=== PATIENT | female | born 1970 | race Caucasian/White ===

== ENCOUNTER 2016-08-24 14:21 | Emergency (ER) | payer OTHER ==
[2016-08-24 14:31] VITALS: RESP 18; TEMP 96
[2016-08-24] MEDS ORDERED: Lidocaine Inj 1% 20 ML ONE (15:00)
--- NOTE | 2016-08-24 15:00 | PDOC ---
Hand / Wrist Injury HPI - General Chief Complaint: Upper Extremity Problem/Injury Stated Complaint: FINGER LACERATION Date Seen by Provider: 08/24/16 Time Seen by Provider: 14:55 Source: POSITIVE: Patient Exam Limitations: POSITIVE: No limitations Nurse's Notes Reviewed & Considered: Yes - History of Present Illness Initial Comments: Patient was at work at the [employer] and called her finger in the conveyor. This resulted in laceration of her left third finger distal portion. She has good sensations present and good range of motion. Have you received a tetanus shot in the past 10 years?: Yes Body Location Affected: REPORTS: Other (Left third finger) Timing: REPORTS: Abrupt Duration: 1 hour Severity: Moderate Location at Time of Onset: REPORTS: Work ([employer]) Context: REPORTS: Crush Location of Injury: REPORTS: Left, 3rd Finger Quality: REPORTS: "Pain", Stabbing, Throbbing Modifying Factors: REPORTS: Movement Any Prior Injuries Related to Current Complaint?: No - Patient Home Medications Home Medications: Home Medications Acetaminophen [Tylenol] 650 mg PO TID PRN 01/28/16 Aspirin/Acetaminophen/Caffeine [Excedrin Caplet] 2 each PO PRN PRN 01/28/16 Ibuprofen 600 mg PO TID PRN 01/28/16 Carbamazepine [Tegretol] 200 mg PO QD #60 tab 03/22/16 - Patient Allergies Allergies/Adverse Reactions: Allergies Allergy/AdvReac Type Severity Reaction Status Date / Time cephalexin monohydrate Allergy RASH Verified 08/24/16 14:23 [From Keflex] antidepressants Allergy NOT Uncoded 08/24/16 14:23 APPLICABLE control Allergy NOT Uncoded 08/24/16 14:23 APPLICABLE Past Medical History - heen HEENT History: Denies History Cardiovascular History: Denies History Respiratory History: Denies History Gastrointestinal History: Denies History Genitourinary History: Denies History Endocrine History: Denies History Musculoskeletal History: Denies History Prosthesis or Implant: Yes (HARDWARE IN NECK, BACK, LEFT KNEE) Additional Musculoskeletal History: BACK FRACTURE x5 (SURGERY x3), NECK FRACTURE x1 (SURGERY), RIGHT ELBOW SURGERY, LEFT KNEE SURGERY Neurological History: Denies History Blood Disorders: Denies History Psychiatric History: Bi Polar Disorder, Anxiety Disorders History of Sexually Transmitted Diseases: No Cancer History: Denies History In Past Year Been Physically Harmed or Verbally Threatened: No History of MDRO: No History of Other Communicable Diseases: No Tobacco Use: Current Some Day Smoker Alcohol Use: None Substance Use Type: None Previous Surgical History: Yes Type / Date of Surgery: back x3, knee, hyster, lap expl., ovarian cysts, arm Anesthesia Reactions: No Malignant Hyperthermia: No Significant Family History: No pertinent family hx ROS - Limitations ROS Limitations: No Limitations Constitution: REPORTS: Denies Symptoms Cardiovascular: REPORTS: Denies Cardiac Symptoms Respiratory: REPORTS: Denies Resp Symptoms Neurological: REPORTS: Denies Neuro Symptoms Gastrointestinal: REPORTS: Denies GI Symptoms Endocrine: REPORTS: Denies Symptoms Musculoskeletal: REPORTS: Denies MS Symptoms Genitourinary: REPORTS: Denies Symptoms Eyes: REPORTS: Denies Symptoms ENT: REPORTS: Denies Symptoms Skin: REPORTS: Other (Laceration tip of left third finger.) Lympathic: REPORTS: Denies Lympathic Symptoms Immunologic: POSITIVE: Denies Symptoms Psychiatric: POSITIVE: Denies Psych Symptoms Hand / Wrist Injury Exam - General Appearance General Appearance: POSITIVE: Alert, Cooperative, No Acute Distress - Extremities Upper Extremity: POSITIVE: No Evidence of FB, Normal ROM, Soft Tissue Tenderness , Other (1 cm laceration tip of left third finger.) Neurovascular / Tendon: POSITIVE: Sensation Normal, Motor Normal, No Vascular Compromise, Tendon Function Normal Skin: POSITIVE: Warm, Dry - HEENT HEENT: POSITIVE: Head Inspection Nml, Eyes Inspection Nml, Ears Inspection Nml, Nose Inspection Nml, PERRL, EOMI Procedure - Laceration/Wound Repair Time of Suture Placement:: 15:33 Wound Length (cm): 1 Wound's Depth, Shape: Flap Distal CMS: Yes Skin Prep: Betadine Prep Local Anesthesia Used - Indicate Amt Used in Comment: Lidocaine 1%: Yes Irrigated w/ Saline (mL): 10 Wound Explored: Clean Wound Debrided: Minimal Wound Repaired With: Sutures single layer Suture Size/Type: 4:0, Ethilon Number of Sutures: 3 Drain Placement: No Sterile Dressing Applied?: Yes Splint Applied?: No Sling Applied?: No Hand / Wrist Injury Progress - Patient's Progress Pain Medication Addressed: POSITIVE: Other (Please Comment) (local anesthesia) School/Work Release Addressed: POSITIVE: Yes Status: POSITIVE: Improved MDM / ED Course: Patient had the skin at the base of her third finger left hand cleaned with alcohol swab, 1% plain lidocaine was infiltrated in a ring block which resulted in excellent anesthesia. Her hand was soaked in a Betadine T for approximately 20 minutes, irrigated with normal saline 10 mL, then suture repaired using 4-0 Ethilon in interrupted fashion. A total of 3 interrupted sutures were placed with good skin edge approximation and good hemostasis. Patient tolerated this well. She is discharged home with instructions and wound care instructions to return here to the emergency department in 7 days for suture removal. - Consult Counseled: POSITIVE: Patient, RE: DX, RE: Need for F/U Patient Care Time - Estimated PCT Patient Care Time (In Minutes): 20 Vital Signs - Recent Vital Signs Vital Signs: Vital Signs (Last 8 hours) Temp Pulse Resp BP Pulse Ox 08/24/16 14:22 96.0 F L 81 18 138/84 95 - VS Reviewed Vital Signs Reviewed: Yes Discharge Clinical Impression: Laceration of finger Discharge Disposition: Discharged to Home Condition: Good Patient Instructions Given at Discharge: Laceration (ED)
[2016-08-24] MEDS ORDERED: Lidocaine 1% 10 MG/ML - 20 ML VIAL SUBCUT ONE (15:06)
== END 2016-08-24 15:44 | disposition home or self-care (01) ==
LOC: ER 14:21
DX: S61.213A Laceration without foreign body of left middle finger without damage to nail, initial encounter (principal); W31.82XA Contact with other commercial machinery, initial encounter; Y99.0 Civilian activity done for income or pay
CPT/HCPCS: 12001; 99282; J2001

== ENCOUNTER 2016-09-14 08:16 | Emergency (ER) | payer SELFPAY ==
[2016-09-14 08:27] VITALS: RESP 18; TEMP 97.4
[2016-09-14 09:06] LABS: BASOPHILS # (AUTO) 0.01 10*3/UL; BASOPHILS % (AUTO) 0.2 % (0-1); EOSINOPHILS % (AUTO) 1.2 % (0-8); HEMATOCRIT 43.3 % (37.0-47.0); HEMOGLOBIN 15.1 g/dL (12.0-16.0); IMM GRAN % (AUTO) 0.2 % (0-5); IMM GRAN# (AUTO) 0.01 10*3/UL; LYMPHOCYTES # (AUTO) 1.89 10*3/uL; LYMPHOCYTES % (AUTO) 29.4 % (10-50); MEAN CORPUSCULAR HEMOGLOBIN 31.6 PG (27-31); MEAN CORPUSCULAR HGB CONC 34.9 g/dL (33-37); MEAN PLATELET VOLUME 10.7 FL (7.4-12.2); MONOCYTES # (AUTO) 0.48 10*3/UL (0.3-0.8); MONOCYTES % (AUTO) 7.5 % (5-15); NEUTROPHILS # (AUTO) 3.96 10*3/UL; NEUTROPHILS % (AUTO) 61.5 % (50-80); RED BLOOD COUNT 4.78 10^6/uL (4.20-5.40); WHITE BLOOD COUNT 6.43 10^3/uL (4.8-10.8)
--- NOTE | 2016-09-14 09:06 | PDOC ---
Chest Pain HPI - General Chief Complaint: General Medical Stated Complaint: rib pain Date Seen by Provider: 09/14/16 Time Seen by Provider: 08:25 Source: Patient Exam Limitations: POSITIVE: No limitations Treatment Prior to Arrival: REPORTS: None Nurse's Notes Reviewed & Considered: Yes - History of Present Illness Initial Comments: The patient is a 46-year-old female. She states that this past , 5 days ago, she developed a fairly abrupt onset of bilateral "rib pain"somewhat worse on the left than the right. She complains of pain over both thoraces which is somewhat pleuritic and she states she "feels like I have broken ribs". The pain has been persistent and is worsened by direct palpation. She smokes a fourth of a pack of cigarettes per day. No cough. No fevers. She has been taken Tylenol Advil and tramadol for this pain. She states her pain is exacerbated by deep inspiration. 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 DENIES: Nausea, Vomiting, Diaphoresis, Shortness of Breath, Palpitations, Productive Cough (blood), Productive Cough (sputum), Weakness, Dizziness Modifying Factors: improves with: Deep breathing, Pressing On Area Similar Symptoms Previously: No Recently seen/treated/hospitalized: No Any Prior Injuries Related to Current Complaint?: No - Patient Home Medications Home Medications: Home Medications Acetaminophen [Tylenol] 650 mg PO TID PRN 01/28/16 Aspirin/Acetaminophen/Caffeine [Excedrin Caplet] 2 each PO PRN PRN 01/28/16 Ibuprofen 600 mg PO TID PRN 01/28/16 Carbamazepine [Tegretol] 200 mg PO QD #60 tab 03/22/16 - Patient Allergies Allergies/Adverse Reactions: Allergies Allergy/AdvReac Type Severity Reaction Status Date / Time cephalexin monohydrate Allergy RASH Verified 08/24/16 14:23 [From Keflex] antidepressants Allergy NOT Uncoded 08/24/16 14:23 APPLICABLE control Allergy NOT Uncoded 08/24/16 14:23 APPLICABLE Past Medical History - heen HEENT History: Denies History Cardiovascular History: Denies History Respiratory History: Denies History Gastrointestinal History: Denies History Genitourinary History: Denies History Endocrine History: Denies History Musculoskeletal History: Denies History Prosthesis or Implant: Yes (HARDWARE IN NECK, BACK, LEFT KNEE) Additional Musculoskeletal History: BACK FRACTURE x5 (SURGERY x3), NECK FRACTURE x1 (SURGERY), RIGHT ELBOW SURGERY, LEFT KNEE SURGERY Neurological History: Denies History Blood Disorders: Denies History Psychiatric History: Bi Polar Disorder, Anxiety Disorders History of Sexually Transmitted Diseases: No Female Reproductive History: Denies History Obstetrical History: Denies History Cancer History: Denies History In Past Year Been Physically Harmed or Verbally Threatened: No History of MDRO: No History of Other Communicable Diseases: No Tobacco Use: Never Smoker Alcohol Use: None Substance Use Type: None Previous Surgical History: Yes Type / Date of Surgery: back x3, knee, hyster, lap expl., ovarian cysts, arm Anesthesia Reactions: No Malignant Hyperthermia: No Significant Family History: No pertinent family hx Past Medical History Reviewed: Reviewed - No Changes ROS - Limitations ROS Limitations: No Limitations Constitution: REPORTS: Denies Symptoms Cardiovascular: REPORTS: Chest Pain (Chest pain on palpation diffusely over thorax) Respiratory: REPORTS: Hurts To Breathe Neurological: REPORTS: Denies Neuro Symptoms Gastrointestinal: REPORTS: Denies GI Symptoms Endocrine: REPORTS: Denies Symptoms Musculoskeletal: REPORTS: Denies MS Symptoms Genitourinary: REPORTS: Denies Symptoms Eyes: REPORTS: Denies Symptoms ENT: REPORTS: Denies Symptoms Skin: REPORTS: Denies Skin Symptoms Lympathic: REPORTS: Denies Lympathic Symptoms Immunologic: POSITIVE: Denies Symptoms Psychiatric: POSITIVE: Denies Psych Symptoms Chest Pain PE - General Appearance General Appearance: REPORTS: Alert, Cooperative, No Evidence of Trauma, Moderate Distress - HEENT HEENT: POSITIVE: Head Inspection Nml, Eyes Inspection Nml, Ears Inspection Nml, Nose Inspection Nml, Oral/Dental Inspect. Nml, Pharynx Inspect. Nml, PERRL, EOMI - Neck Neck: REPORTS: Normal Inspection, No Carotid Bruit - Respiratory Respiratory: REPORTS: No Respiratory Distress, Breath Sounds Normal, See Diagram (Patient expresses pain on palpation anywhere over the thorax). DENIES : Chest Non-Tender - Cardiovascular Cardiovascular: REPORTS: Regular Rate and Rhythm, Heart Sounds Normal, Equal Pulses, Strong Pulses, No Murmur, No Gallop, No Friction Rub, No JVD Peripheral Pulses: Radial (R): 2+, Radial (L): 2+ - Abdomen Abdomen: Soft: (All Quadrants), Normal Bowel Sounds: (All Quadrants), Denies Tenderness: (All Quadrants), No Splenomegaly: (All Quadrants), No Hepatomegaly: (All Quadrants), No Guarding: (All Quadrants), No Rebound: (All Quadrants), No Palpable Pulse: (All Quadrants), No Palpabale Mass: (All Quadrants), No Distention: (All Quadrants), No Rigidity: (All Quadrants) - Skin Skin: REPORTS: Intact, Normal For Race, Warm, Dry, No Rash - Extremities Extremity: Non-Tender: (All Extremities), Normal ROM: (All Extremities), Normal Inspection: (All Extremities) - Neurological / Psychological Neurological: 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 Larsen at 9 AM. Lab Results Reviewed: Yes (CBC and d-dimer are pending at time of transfer) - Patient's Progress Pain Medication Addressed: POSITIVE: No School/Work Release Addressed: POSITIVE: Not Applicable Re-Examine Time: 09:00 Re-Examine Comment: Condition unchanged. Care of patient transferred to Dr. Larsen, who is the emergency physician coming on at 9 AM Status: POSITIVE: Unchanged Patient Care Time - Estimated PCT Patient Care Time (In Minutes): 30 Vital Signs - Recent Vital Signs Vital Signs: Vital Signs (Last 8 hours) Temp Pulse Resp BP Pulse Ox 09/14/16 08:16 97.4 F 90 18 140/72 97 Discharge Clinical Impression: Non-cardiac chest pain Condition: Good Care Transferred To: care transferred to Dr. Larsen, formerly [facility] ER physician at 9 AM. X-rays an
[2016-09-14 09:07] LABS: PLATELET MORPHOLOGY COMMENT NORMAL MORPHOLOGY (NORM)
[2016-09-14] MEDS ORDERED: KETOROLAC 60 MG/2 ML VIAL IM ONE (09:21)
--- NOTE | 2016-09-14 09:41 | DI ---
PA /LATERAL CHEST X-RAY, 09/14/2016 8:42 AM : Clinical History: Chest pain. Previous Exam: 01/15/2016. There is no acute soft tissue or bony abnormality. Heart size is normal. Lungs are clear. Mediastinal structures are normal. There are no pulmonary nodules. Reading: Normal chest x-ray. There has been no interval change.
--- NOTE | 2016-09-14 10:16 | PDOC ---
General Adult HPI - General Chief Complaint: General Medical Stated Complaint: rib pain Date Seen by Provider: 09/14/16 Time Seen by Provider: 10:13 - History of Present Illness Initial Comment: Documentation from previous provider reviewed and agree with the subjective portion Have you received a tetanus shot in the past 10 years?: Yes - Patient Home Medications Home Medications: Home Medications Acetaminophen [Tylenol] 650 mg PO TID PRN 01/28/16 Aspirin/Acetaminophen/Caffeine [Excedrin Caplet] 2 each PO PRN PRN 01/28/16 Ibuprofen 600 mg PO TID PRN 01/28/16 Carbamazepine [Tegretol] 200 mg PO QD #60 tab 03/22/16 - Patient Allergies Allergies/Adverse Reactions: Allergies Allergy/AdvReac Type Severity Reaction Status Date / Time cephalexin monohydrate Allergy RASH Verified 08/24/16 14:23 [From Keflex] antidepressants Allergy NOT Uncoded 08/24/16 14:23 APPLICABLE control Allergy NOT Uncoded 08/24/16 14:23 APPLICABLE Past Medical History - heen HEENT History: Denies History Cardiovascular History: Denies History Respiratory History: Denies History Gastrointestinal History: Denies History Genitourinary History: Denies History Endocrine History: Denies History Musculoskeletal History: Denies History Prosthesis or Implant: Yes (HARDWARE IN NECK, BACK, LEFT KNEE) Additional Musculoskeletal History: BACK FRACTURE x5 (SURGERY x3), NECK FRACTURE x1 (SURGERY), RIGHT ELBOW SURGERY, LEFT KNEE SURGERY Neurological History: Denies History Blood Disorders: Denies History Psychiatric History: Bi Polar Disorder, Anxiety Disorders History of Sexually Transmitted Diseases: No Female Reproductive History: Denies History Obstetrical History: Denies History Cancer History: Denies History In Past Year Been Physically Harmed or Verbally Threatened: No History of MDRO: No History of Other Communicable Diseases: No Tobacco Use: Never Smoker Alcohol Use: None Substance Use Type: None Previous Surgical History: Yes Type / Date of Surgery: back x3, knee, hyster, lap expl., ovarian cysts, arm Anesthesia Reactions: No Malignant Hyperthermia: No Significant Family History: No pertinent family hx Past Medical History Reviewed: Reviewed - No Changes ROS - Limitations ROS Limitations: No Limitations Constitution: REPORTS: Denies Symptoms Cardiovascular: REPORTS: Denies Cardiac Symptoms. DENIES: Heart Palpitations Respiratory: REPORTS: Denies Resp Symptoms Neurological: REPORTS: Denies Neuro Symptoms General Adult Exam - General Appearance General Appearance: POSITIVE: Alert, Cooperative, No Acute Distress - HEENT HEENT: POSITIVE: Head Inspection Nml, Eyes Inspection Nml General Adult Progress - Results Reviewed by me Xrays/CTs/US Reviewed by me: Yes Radiology Findings: Normal chest Lab Results Reviewed: Yes Lab Results:: Laboratory Results 09/14/16 Range/Units 09:00 WBC 6.43 (4.8-10.8) 10^3/uL RBC 4.78 (4.20-5.40) 10^6/uL Hgb 15.1 (12.0-16.0) g/dL Hct 43.3 (37.0-47.0) % MCV 90.6 (81-99) FL MCH 31.6 H (27-31) PG MCHC 34.9 (33-37) g/dL RDW Std Deviation 39.6 (39-50) fL RDW Coeff of Rahul 12.0 (11.5-14.5) % Plt Count 219 (140-350) 10*3/uL MPV 10.7 (7.4-12.2) FL Immature Gran % (Auto) 0.2 (0-5) % Neut % (Auto) 61.5 (50-80) % Lymph % (Auto) 29.4 (10-50) % Barren % (Auto) 7.5 (5-15) % Eos % (Auto) 1.2 (0-8) % Baso % (Auto) 0.2 (0-1) % Immature Gran # (Auto) 0.01 10*3/UL Neut # (Auto) 3.96 10*3/UL Lymph # (Auto) 1.89 10*3/uL Barren # (Auto) 0.48 (0.3-0.8) 10*3/UL Eos # (Auto) 0.08 10*3/UL Baso # (Auto) 0.01 10*3/UL WBC Morphology Comment Normal morphology (NORM) Plt Morphology Comment Normal morphology (NORM) RBC Morph Comment Normal morphology (NORM) D-Dimer 0.35 (0.00-0.59) mg/L - Patient's Progress MDM / ED Course: This patient's story is abnormal. She has chest wall tenderness throughout her entire chest with no evidence of inflammation via a elevated white blood cell count a negative d-dimer and normal chest x-ray. She does not have any signs or symptoms consistent with a coronary phenomenon given that it is all chest wall in nature and reproducible with touch throughout the majority of her chest wall. This does not extend down into her abdomen does not affected joints or other muscle groups I'm really not sure what to make of it. I've encouraged her to follow-up with her primary care doctor as soon as possible. Also encourage her to follow-up. If things worsen at all. I have told her that occasionally I've seen similar sorts of symptoms prior to his substantial viral syndrome. At any rate she definitely needs further monitoring and workup and needs to return here if she worsens at all. Patient Care Time - Estimated PCT Patient Care Time (In Minutes): 20 Vital Signs - Recent Vital Signs Vital Signs: Vital Signs (Last 8 hours) Temp Pulse Resp BP Pulse Ox 09/14/16 08:16 97.4 F 90 18 140/72 97 - VS Reviewed Vital Signs Reviewed: Yes Discharge Clinical Impression: Non-cardiac chest pain, Acute chest wall pain Discharge Disposition: Discharged to Home Condition: Good Patient Instructions Given at Discharge: Chest Wall Pain (ED) Additional Instructions: Return here immediately with any worsening of symptoms change in your chest pain shortness of breath diaphoresis or other concerning problems Continue to use ibuprofen and Tylenol with plenty of food and water. Getting your primary care provider as soon as possible for further workup Follow Up With: DEBBY SEVILLA [Primary Care Provider] -
== END 2016-09-14 09:59 | disposition home or self-care (01) ==
LOC: ER 08:16
DX: R07.89 Other chest pain (principal)
CPT/HCPCS: 36415; 71020; 85025; 85379; 96372; 99284 ×2; J1885

== ENCOUNTER 2016-10-13 13:31 | Emergency (ER) | payer SELFPAY ==
[2016-10-13] MEDS ORDERED: KETOROLAC 30 MG/1 ML VIAL IVP ONE (13:44)
[2016-10-13] MEDS: NORMAL SALINE 10 ML SYRINGE FLUSH IVP PRN ×2 (13:45→15:55)
[2016-10-13 13:49] VITALS: RESP 16; TEMP 97.7
--- NOTE | 2016-10-13 13:51 | PDOC ---
Back Pain / Injury HPI - General Chief Complaint: Neck / Back Complaint Stated Complaint: "SEVERE" BACK PAIN Date Seen by Provider: 10/13/16 Time Seen by Provider: 13:47 Source: Patient Nurse's Notes Reviewed & Considered: Yes - History of Present Illness Initial Comments: Patient is a 46-year-old female who presents to the emergency department with severe left flank pain. Patient put she's had this for the last few weeks. Somewhat intermittent and getting worse. Severe today. Patient indicates her some radiation into the anterior abdomen. No specific relieving factors. Somewhat worse with movement. She does have a history of chronic back pain secondary to prior traumatic injury and repair however she indicates that this feels different than her typical back pain. Denies urinary frequency, hematuria , urgency. Patient denies any weakness in the lower extremities. No numbness or tingling. Patient was seen in the emergency department a few weeks prior for left-sided rib pain. She still has minimal discomfort there. - Patient Home Medications Home Medications: Home Medications Acetaminophen [Tylenol] 650 mg PO TID PRN 01/28/16 Aspirin/Acetaminophen/Caffeine [Excedrin Caplet] 2 each PO PRN PRN 01/28/16 Ibuprofen 600 mg PO TID PRN 01/28/16 Carbamazepine [Tegretol] 200 mg PO QD #60 tab 03/22/16 Cyclobenzaprine HCl [Flexeril] 10 mg PO TID PRN #12 tab 10/13/16 Meloxicam 7.5 mg PO DAILY #14 tablet 10/13/16 - Patient Allergies Allergies/Adverse Reactions: Allergies Allergy/AdvReac Type Severity Reaction Status Date / Time cephalexin monohydrate Allergy RASH Verified 10/13/16 13:34 [From Keflex] antidepressants Allergy NOT Uncoded 10/13/16 13:34 APPLICABLE control Allergy NOT Uncoded 10/13/16 13:34 APPLICABLE Past Medical History - heen HEENT History: Denies History Cardiovascular History: Denies History Respiratory History: Denies History Gastrointestinal History: Denies History Genitourinary History: Denies History Endocrine History: Denies History Musculoskeletal History: Denies History Prosthesis or Implant: Yes (HARDWARE IN NECK, BACK, LEFT KNEE) Additional Musculoskeletal History: BACK FRACTURE x5 (SURGERY x3), NECK FRACTURE x1 (SURGERY), RIGHT ELBOW SURGERY, LEFT KNEE SURGERY Neurological History: Denies History Blood Disorders: Denies History Psychiatric History: Bi Polar Disorder, Anxiety Disorders History of Sexually Transmitted Diseases: No Cancer History: Denies History History of MDRO: No History of Other Communicable Diseases: No Alcohol Use: None Substance Use Type: None Previous Surgical History: Yes Type / Date of Surgery: back x3, knee, hyster, lap expl., ovarian cysts, arm Anesthesia Reactions: No Malignant Hyperthermia: No Significant Family History: No pertinent family hx Past Medical History Reviewed: Reviewed - No Changes ROS - Limitations ROS Limitations: No Limitations Constitution: DENIES: Chills, Fever Cardiovascular: REPORTS: Denies Cardiac Symptoms Respiratory: REPORTS: Denies Resp Symptoms Neurological: REPORTS: Denies Neuro Symptoms Gastrointestinal: REPORTS: Denies GI Symptoms Endocrine: REPORTS: Denies Symptoms Musculoskeletal: REPORTS: Back Pain Genitourinary: REPORTS: Denies Symptoms Eyes: REPORTS: Denies Symptoms ENT: REPORTS: Denies Symptoms Immunologic: POSITIVE: Denies Symptoms Psychiatric: POSITIVE: Denies Psych Symptoms Back Physical Assessment - General Appearance General Appearance: REPORTS: Other (Mild distress secondary to pain) - HEENT HEENT: POSITIVE: Head Inspection Nml, Eyes Inspection Nml, Ears Inspection Nml, Nose Inspection Nml - Pupil Size Pupil Size: 4 mm: Bilateral - Neck Neck: POSITIVE: Non Tender, Painless ROM - Respiratory / CVS Respiratory / CVS: POSITIVE: Chest Non Tender, Breath Sounds Normal, No Respiratory Distress, Heart Sounds Normal, Regular Rate/Rhythm - Abdomen Abdomen: Soft: (All Quadrants), Normal Bowel Sounds: (All Quadrants), Denies Tenderness: (All Quadrants), No Splenomegaly: (All Quadrants), No Hepatomegaly: (All Quadrants), No Guarding: (All Quadrants), No Rebound: (All Quadrants) - Back Back: REPORTS: Other (Patient does have tenderness to palpation and percussion in the left flank. There is no midline tenderness to palpation. Prior surgical scars are noted. No rash.) - Skin Skin: REPORTS: Intact, Warm, Dry - Extremities Extremity Assessment: Non-Tender: (ALL), Normal ROM: (ALL), No Edema: (ALL), Normal Inspection: (ALL) Musculoskeletal: REPORTS: Back Pain - Neurological / Psychological Neuro / Psych: POSITIVE: Oriented X3, Other (Strength and sensation equal in the lower extremities bilaterally. 2+ Achilles and patellar reflexes.) Back Progress - Results Reviewed by me Lab Results Reviewed: Yes Lab Results:: Laboratory Results 04/05/17 04/05/17 Range/Units 14:20 15:27 WBC 6.67 (4.8-10.8) 10^3/uL RBC 4.76 (4.20-5.40) 10^6/uL Hgb 15.1 (12.0-16.0) g/dL Hct 44.0 (37.0-47.0) % MCV 92.4 (81-99) FL MCH 31.7 H (27-31) PG MCHC 34.3 (33-37) g/dL RDW Std Deviation 41.3 (39-50) fL RDW Coeff of Rahul 12.5 (11.5-14.5) % Plt Count 239 (140-350) 10*3/uL MPV 11.0 (7.4-12.2) FL Immature Gran % (Auto) 0.1 (0-5) % Neut % (Auto) 59.9 (50-80) % Lymph % (Auto) 32.5 (10-50) % Turner % (Auto) 6.4 (5-15) % Eos % (Auto) 1.0 (0-8) % Baso % (Auto) 0.1 (0-1) % Immature Gran # (Auto) 0.01 10*3/UL Neut # (Auto) 3.98 10*3/UL Lymph # (Auto) 2.17 10*3/uL Turner # (Auto) 0.43 (0.3-0.8) 10*3/UL Eos # (Auto) 0.07 10*3/UL Baso # (Auto) 0.01 10*3/UL WBC Morphology Comment Normal morphology (NORM) Plt Morphology Comment Normal morphology (NORM) RBC Morph Comment Normal morphology (NORM) Sodium 144 (135-145) meq/L Potassium 3.7 L (3.8-5.2) meq/L Chloride 106 (98-112) meq/L Carbon Dioxide 24 (23-33) meq/L Anion Gap 14 (5-20) BUN 13 (7-22) mg/dL Creatinine 0.6 (0.50-1.20) mg/dL Estimated GFR > 60 (>60 ml/min/1.73m(2)) BUN/Creatinine Ratio 21.66 H (6-20) Glucose 122 H (78-110) mg/dL Calculated Osmolality 298.0 H (267-292) mOsm/kg Calcium 9.2 (8.7-10.7) mg/dL Total Bilirubin 0.5 (0.3-1.2) mg/dL AST 24 (8-39) IU/L ALT 16 (9-52) IU/L Alkaline Phosphatase 47 (38-126) IU/L Total Protein 7.7 (6.1-8.0) g/dL Albumin 4.3 (3.5-4.8) g/dL Globulin 3.4 (2.50-4.10) g/dL Albumin/Globulin Ratio 1.20 L (1.3-2.0) mg/g Lipase 80 (23-300) IU/L Ur Collection Type Clean catch urine Urine Color Yellow Urine Clarity Clear (CLEAR) Urine pH 5.5 (5.0-8.5) Ur Specific Onia 1.025 (1.005-1.030) Urine Protein 30 (NEG) mg/dl Urine Glucose (UA) Negative (NEG) mg/dL Urine Ketones 15 (NEG) Urine Occult Blood Negative (NEG) Urine Nitrate Negative (NEG) Urine Bilirubin Small (NEG) Urine Urobilinogen 1.0 (0.2) mg/dL Ur Leukocyte Esterase Negative (NEG) Urine RBC 5-10 (NONE) /hpf Urine WBC None (NONE) Ur Squamous Epith Cells Few (NONE) Ur Renal Epithelial Cell None (NONE) Urine Crystals None Urine Bacteria Rare (NONE) Urine Casts None Urine Mucus Few (NONE) Urine Trichomonas None (NONE) Urine Yeast None (NONE) - Patient's Progress Pain Medication Addressed: POSITIVE: Yes MDM / ED Course: Erinn is a 46-year-old female who presents to the emergency department with severe left-sided flank and back pain. Her vital signs are unremarkable and examination demonstrates tenderness to palpation of left back. Differential diagnosis includes but is not limited to pyelonephritis, urinary tract infection , back pain, renal colic. Patient was treated here with Norflex and Toradol. Patient had minimal improvement with Norflex and Toradol. Was also given 4 mg of morphine with improvement in her pain. Her analysis does not demonstrate any evidence of significant infection. She did have a few red blood cells. CT scan of the abdomen and pelvis was without acute findings. Laboratory studies are reassuring. Given negative evaluation and tenderness over the left flank this may be muscular skeletal back pain. Will start patient on meloxicam and Flexeril and have her follow-up with her primary care provider for further evaluation. Patient Care Time - Estimated PCT Patient Care Time (In Minutes): 25 Vital Signs - Recent Vital Signs Vital Signs: Vital Signs (Last 8 hours) Temp Pulse Resp BP Pulse Ox 10/13/16 13:31 97.7 F 119 H 16 152/110 96 - VS Reviewed Vital Signs Reviewed: Yes Discharge Clinical Impression: Acute low back pain Discharge Disposition: Discharged to Home Condition: Fair Prescriptions / Orders: Cyclobenzaprine HCl [Flexeril] 10 mg PO TID PRN #12 tab PRN Reason: Spasms Meloxicam 7.5 mg PO DAILY #14 tablet Patient Instructions Given at Discharge: Back Pain (ED) Additional Instructions: Thank you for coming to the emergency department. Your workup here shows no serious medical cause of your back pain at this time. This may be musculoskeletal pain in the left back. Please take medications as prescribed and follow-up with your primary care provider for further evaluation. Return to the emergency department for any worsening symptoms.
[2016-10-13 14:31] LABS: BASOPHILS # (AUTO) 0.01 10*3/UL; BASOPHILS % (AUTO) 0.1 % (0-1); EOSINOPHILS # (AUTO) 0.07 10*3/UL; HEMOGLOBIN 15.1 g/dL (12.0-16.0); LYMPHOCYTES # (AUTO) 2.17 10*3/uL; MEAN CORPUSCULAR HEMOGLOBIN 31.7 PG (27-31); MEAN CORPUSCULAR HGB CONC 34.3 g/dL (33-37); MEAN CORPUSCULAR VOLUME 92.4 FL (81-99); MONOCYTES # (AUTO) 0.43 10*3/UL (0.3-0.8); MONOCYTES % (AUTO) 6.4 % (5-15); NEUTROPHILS # (AUTO) 3.98 10*3/UL; NEUTROPHILS % (AUTO) 59.9 % (50-80); RED BLOOD COUNT 4.76 10^6/uL (4.20-5.40)
[2016-10-13 14:32] LABS: PLATELET MORPHOLOGY COMMENT NORMAL MORPHOLOGY (NORM); RBC MORPHOLOGY COMMENT NORMAL MORPHOLOGY (NORM); WBC MORPHOLOGY COMMENT NORMAL MORPHOLOGY (NORM)
[2016-10-13 14:39] LABS: BLOOD UREA NITROGEN 13 mg/dL (7-22); BUN/CREATININE RATIO 21.66 (6-20); CALCIUM 9.2 mg/dL (8.7-10.7); EST GLOMERULAR FILTRATION > 60 (>60 ml/min/1.73m(2)); LIPASE 80 IU/L (23-300); SERUM ALBUMIN 4.3 g/dL (3.5-4.8)
[2016-10-13 15:40] LABS: BILIRUBIN,URINE SMALL (NEG); COLOR,URINE YELLOW; GLUCOSE, URINE (UA) NEGATIVE (NEG); NITRATE,URINE NEGATIVE (NEG); OCCULT BLOOD,URINE NEGATIVE (NEG); PH,URINE 5.5 (5.0-8.5); PROTEIN,URINE 30 mg/dl (NEG)
--- NOTE | 2016-10-13 15:51 | DI ---
CT ABDOMEN SCAN WITHOUT IV CONTRAST, 10/13/2016 1:44 PM : Clinical History: Severe left flank pain. Previous Exam: None at this facility. Scans are performed from the lower lung bases through the liver and kidneys without IV contrast. Sagi ttal and coronal reformatted images are generated. The lung bases are clear. The liver is normal. The gallbladder is contracted but otherwise grossly no rmal. There is no abnormality of the spleen, pancreas, and adrenal glands. Both kidneys are normal in size, shape, position and contour. There is no hydronephrosis or hydroureter. No renal or ureteral c alculi are present. The bladder is virtually empty. No retained stone within the bladder is noted. Th ere are no abnormal retrocrural or periaortic nodes. No ascites is present. There are extensive scan artifacts secondary to extensive spine surgery with posterior fusions between L1 and L5 and anterior fusions between L2-3 through L4-5. READING: Normal CT abdomen scan. There is no hydronephrosis or hydroureter and no ureteral or renal calculi ar e identified. CT PELVIS SCAN WITHOUT IV CONTRAST, 10/13/2016 1:44 PM : Clinical History: See above. Previous Exam: None. Scans are performed from the inferior margin of the liver and kidneys to the symphysis pubis without IV contrast. There is no free fluid collection and there is no adenopathy. The appendix is normal. The small bowel , terminal ileum, and ileocecal valve are normal. The colon is also normal. There are no hernias. The patient is status post hysterectomy and bilateral salpingo-oophorectomy. READING: Normal CT pelvis scan.
[2016-10-13] MEDS ORDERED: MORPHINE SULFATE 4 MG/1 ML IVP ONE (15:52)
[2016-10-13 16:10] LABS: CLARITY,URINE CLEAR (CLEAR)
[2016-10-13 16:11] LABS: BACTERIA,URINE RARE; SQUAMOUS EPITHELIAL CELL,UR FEW; URINE SAMPLE TYPE CLEAN CATCH URINE
== END 2016-10-13 16:25 | disposition home or self-care (01) ==
LOC: ER 13:31
DX: M54.5 Low back pain (principal)
CPT/HCPCS: 36415; 74176; 80053; 81001; 83690; 85025; 96374; 96375; 99283 ×2; J1885; J2360; J2270

== ENCOUNTER → 2016-10-18 | Outpatient (CLI) | payer SELFPAY ==
--- NOTE | 2016-10-18 10:34 | DI ---
CT HEAD SCAN WITHOUT IV CONTRAST, 10/18/2016 9:52 AM : Clinical History: The patient complains of the "worst" headache of her life. Previous Exam: 01/15/2016. Scans are obtained from the foramen magnum to the vertex without IV contrast. The 4th, 3rd, and lateral ventricles are of normal size, shape, position, and contour for the patient 's age. There are no abnormal areas of increased or decreased density. Specifically, there is no evid ence of an acute intracranial hemorrhagic focus. There are no extracerebral mantles or shift of the m idline structures. Bone window evaluation is normal. The paranasal sinuses are normal. READING: Normal non contrast CT head scan. No acute intracranial hemorrhagic focus is identified.
== END ==
LOC: CT 09:39
PROVIDERS: ATTEND Nurse Practitioner Family
DX: R51 Headache (principal); F17.200 Nicotine dependence, unspecified, uncomplicated
CPT/HCPCS: 70450

== ENCOUNTER → 2016-12-22 | Outpatient (CLI) | payer SELFPAY ==
--- NOTE | 2016-12-22 15:10 | DI ---
US ABDOMEN LIMITED,12/22/2016 1:52 PM: Clinical History: Upper abdominal pain. Previous Exam: None at this facility. Findings: Multiple grayscale and color Doppler sonographic images are obtained through the right upper quadrant , and demonstrate normal hepatic parenchyma. The gallbladder is normal with the gallbladder wall measuring 2 mm. The common bile duct measures 2 mm. The right kidney measures 10.9 cm in length without hydronephrosis nor nephrolithiasis. Visualized portions of the aorta are unremarkable. Impression: Normal right upper quadrant ultrasound.
== END ==
LOC: US 13:47
PROVIDERS: ATTEND Physician Assistant
DX: R10.84 Generalized abdominal pain (principal)
CPT/HCPCS: 76705

== ENCOUNTER → 2016-12-22 | Outpatient (CLI) | payer SELFPAY ==
[2016-12-22 12:36] LABS: BASOPHILS # (AUTO) 0.03 10*3/UL; BASOPHILS % (AUTO) 0.3 % (0-1); EOSINOPHILS # (AUTO) 0.05 10*3/UL; EOSINOPHILS % (AUTO) 0.5 % (0-8); HEMATOCRIT 42.7 % (37.0-47.0); LYMPHOCYTES # (AUTO) 2.03 10*3/uL; MEAN CORPUSCULAR HEMOGLOBIN 32.1 PG (27-31); MEAN CORPUSCULAR HGB CONC 35.1 g/dL (33-37); MEAN CORPUSCULAR VOLUME 91.4 FL (81-99); MEAN PLATELET VOLUME 11.4 FL (7.4-12.2); MONOCYTES # (AUTO) 0.57 10*3/UL (0.3-0.8); MONOCYTES % (AUTO) 6.1 % (5-15); NEUTROPHILS # (AUTO) 6.67 10*3/UL; NEUTROPHILS % (AUTO) 71.2 % (50-80); RED BLOOD COUNT 4.67 10^6/uL (4.20-5.40)
--- NOTE | 2016-12-22 12:38 | DI ---
XR ABDOMEN KUB UPRIGHT,12/22/2016 11:37 AM: Clinical History: Upper abdominal pain. Previous Exam: None at this facility. Findings: 2 frontal radiographs of the abdomen to include an upright and supine view are obtained, and demonstr ate postsurgical changes consistent with posterior shiv fixation. There is intervertebral disc fusion devices at L4/5 and L2/3. A nonobstructive bowel gas pattern is seen. No pathologic calcifications are seen. Degenerative changes are also noted worst at L4/5. Inner vertebral disc fusion device at L4/5 is slightly displaced anterior and lateral the left. Impression: No acute intra-abdominal pathology. Slightly displaced interbody fusion devices at L2/3 and L3/4
[2016-12-22 12:48] LABS: PLATELET MORPHOLOGY COMMENT NORMAL MORPHOLOGY (NORM); RBC MORPHOLOGY COMMENT NORMAL MORPHOLOGY (NORM); WBC MORPHOLOGY COMMENT NORMAL MORPHOLOGY (NORM)
[2016-12-22 12:49] LABS: BLOOD UREA NITROGEN 16 mg/dL (7-22); BUN/CREATININE RATIO 22.85 (6-20); C-REACTIVE PROTEIN 0.7 mg/dL (0.0-0.9); CALCIUM 9.4 mg/dL (8.7-10.7); EST GLOMERULAR FILTRATION > 60 (>60 ml/min/1.73m(2)); LIPASE 57 IU/L (23-300); SERUM ALBUMIN 4.1 g/dL (3.5-4.8)
== END ==
LOC: MOB LAB 11:44
PROVIDERS: ATTEND Physician Assistant
DX: R10.84 Generalized abdominal pain (principal); R51 Headache; R11.10 Vomiting, unspecified; F17.200 Nicotine dependence, unspecified, uncomplicated
CPT/HCPCS: 36415; 74020; 80053; 82150; 83690; 85025; 86140; 87088

== ENCOUNTER → 2016-12-24 | Outpatient (CLI) | payer SELFPAY | LOC: MOB LAB 12:56 | PROVIDERS: ATTEND Physician Assistant | DX: R10.84 Generalized abdominal pain (principal) | CPT/HCPCS: 87088 ==